=== PATIENT | male | born 1975 | race Caucasian/White ===

== ENCOUNTER → 2025-02-21 | Outpatient (CLI) | payer OTHER, SELFPAY ==
--- OUTSIDE RECORDS SUMMARY | 2025-02-21 07:04 | XMS RPT_ITS | CCD ---
Author Organization [facility] Inform ion [facility] Care Team Providers Care Ems Manager Name Role Phone LENNOX , DR JANA Rushing Primary Care Physician [phone], [address] JANA Rushing Attending Unavailabl e LENNOX DO, DR JANA Rushing Primary Care Unavailabl e LENNOX DO, DR JANA Rushing Attending Unavailabl e LENNOX DO, DR JANA Rushing Primary Care Unavailabl e LENNOX DO, DR JANA Rushing Primary Care Unavailabl e LENNOX DO, DR JANA Rushing Attending Unavailabl e LENNOX DO, DR JANA Rushing Attending Unavailabl e LENNOX DO, DR JANA Rushing Primary Care Unavailabl e SamuelSpencer Referring Unavailable SamuelSpencer Attending Unavailable LennoxJana Primary Care Unavailable Allergies Allergy Classification Reported Allergen(s) Allergy Type Date of Onset Reaction(s) Facility (3 sources) seasonal enviromental Allergy to substance Sneezing (finding), Cough (finding) [facility] Medications Current Medications Medication Drug Class(es) Dates Sig (Normalized) Sig (Original) bisoprolol fumarate 5 mg / hydroCHLOROthiazide 6.25 mg oral tablet (3 sources) Thiazide Diuretic, beta-Adrenergic Melissa Start: 01-24-2023 End: 07-25-2023 take 1 tablet by mouth once daily bisoprolol-hydro chlorothiazide 5 - 6.25 mg oral tablet Dose = 2 tab(s), Oral, Daily, # 180 tab(s), 3 Refill(s), Pharmacy: [facility]/pharmacy #[id number], Hypertension, 172, cm, 01/26/23 15:22:00 EDT, Height, kg, 01/26/23 15:22:00 EDT, Dosing Weight Start Date: 01/26/23 Stop Date: 07/25/23 Status: Ordered Start: 07-15-2022 End: 01-11-2023 take 1 tablet by mouth once daily bisoprolol-hydrochlorothiazide 5 - 6.25 mg oral tablet Dose = 2 tab(s), Oral, Daily, # 60 tab(s), 5 Refill(s), Pharmacy: [facility]/pharmacy #[id number], Hypertension, 172, cm, 07/15/22 15:48:00 EST, Height, kg, 07/15/22 15:48:00 EST, Dosing Weight Start Date: 07/15/22 Stop Date: 01/11/23 Status: Ordered fluticasone propionate 0.05 mg/actuat metered dose nasal spray (3 sources) Corticosteroid Start: 08-31-2021 take 1 dose nasal route twice daily Flonase 50 mcg/inh nasal spray Dose = 1 spray(s), Nostril, each, BID, 0 Refill(s) Start Date: 08/31/21 Status: Ordered lisinopril 10 mg oral tablet (3 sources) Angiotensin Converting Enzyme Inhibitor Start: 01-26-2023 lisinopril 10 mg oral tablet Dose : 10 mg = 1 tab(s), Oral, qDay, # 90 tab(s), 3 Refill(s), [id number], 172, cm, 01/26/23 15:22:00 EDT, Height, kg, 01/26/23 15:22:00 EDT, Dosing Weight Start Date: 01/26/23 Status: Ordered Start: 01-24-2023 lisinopril 10 mg oral tablet Dose : 10 mg = 1 tab(s), Oral, qDay, # 30 tab(s), 5 Refill(s), Pharmacy: [facility]/pharmacy #[id number], 172, cm, 08/03/22 16:43:00 EST, Height, kg, 08/03/22 16:43:00 EST, Dosing Weight Start Date: 01/24/23 Status: Ordered Start: 07-15-2022 lisinopril 10 mg oral tablet Dose : 10 mg = 1 tab(s), Oral, qDay, # 30 tab(s), 5 Refill(s), Pharmacy: [facility]/pharmacy #[id number], 172, cm, 07/15/22 15:48:00 EST, Height Start Date: 07/15/22 Status: Ordered Problems Problem Classification Problem Date Documented Da te Episodic/Chronic Cardiac dysrhythmias (1 source) Paroxysmal atrial fibrillation; Translations: [Paroxysmal atrial fibrillation] Onset: 02-12-2025 Chronic Diabetes mellitus without complication (1 source) Impaired fasting glycemia; Translations: [Impaired fasting glucose] Episodic Essential hypertension (5 sources) Hypertensive disorder; Translations: [Essential (primary) hypertension] Onset: 01-26-2023 06-28-2022 Chronic Results Test Name Value Interpretation Reference Range Facility .Auto Diffon 10-26-2024 Basophil, Absolute 0.0 10 3/mcL Normal 0.0-0.2 [facility] Comment on above: Performed By: #### A DIFF, TSH, CMP, CBC, ANEU, LIPID, GFR #### [address] [address] Basophils/100 WBC (Bld) 0.4 % Normal 0.0-2.5 [facility] Comment on above: Performed By: #### A DIFF, TSH, CMP, CBC, ANEU, LIPID, GFR #### [address] [address] Eosinophil, Absolute 0.2 10 3/mcL Normal 0.0-0.7 [facility] Comment on above: Performed By: #### A DIFF, TSH, CMP, CBC, ANEU, LIPID, GFR #### [address] [address] Eosinophils/100 WBC (Bld) 3.1 % Normal 0.0-7.0 [facility] Comment on above: Performed By: #### A DIFF, TSH, CMP, CBC, ANEU, LIPID, GFR #### [address] [address] Lymphocyte, Absolute 1.9 10 3/mcL Normal 0.9-4.3 [facility] Comment on above: Performed By: #### A DIFF, TSH, CMP, CBC, ANEU, LIPID, GFR #### [address] [address] Lymphocytes/100 WBC (Bld) 29.3 % Normal 20.0-40.0 [facility] Comment on above: Performed By: #### A DIFF, TSH, CMP, CBC, ANEU, LIPID, GFR #### [address] [address] Monocyte, Absolute 0.6 10 3/mcL Normal 0.1-1.4 [facility] Comment on above: Performed By: #### A DIFF, TSH, CMP, CBC, ANEU, LIPID, GFR #### [address] [address] Monocytes/100 WBC (Bld) 8.7 % Normal 2.0-13.0 [facility] Comment on above: Performed By: #### A DIFF, TSH, CMP, CBC, ANEU, LIPID, GFR #### [address] [address] Neutrophils/100 WBC (Bld) 58.5 % Normal 50.0-75.0 [facility] Comment on above: Performed By: #### A DIFF, TSH, CMP, CBC, ANEU, LIPID, GFR #### [address] [address] .GFRon 10-26-2024 Estimated Glomerular Filtration Rate 87 ml/min/1.73sqm Normal [facility] Comment on above: Result Comment: Stages of Chronic Kidney Disease (CKD) Stage Description eGFR(ml/min/1.73 sq.m.) CKD 1 Normal kidney function or >=90 normal kindney function with possible kidney damage (ex. Proteinuria) CKD 2 Kidney damage with mild loss 60-89 of kidney function CKD 3a Mild to moderate loss of kidney 45-59 function CKD 3b Moderate to severe loss of 30-44 of kindey function CKD 4 Severe loss of kidney function 15-29 CKD 5 Kidney failure <15 Note: (go live 2024) the eGFR calculation was updated to the 2020 CKD-EPI creatinine equation without a race factor to calculate the eGFR results. Performed By: #### A DIFF, TSH, CMP, CBC, ANEU, LIPID, GFR #### [id number] [place], [place] [address] .NEUABSon 10-26-2024 Neutrophil, Absolute 3.7 10 3/mcL Normal 2.3-8.1 [facility] Comment on above: Performed By: #### A DIFF, TSH, CMP, CBC, ANEU, LIPID, GFR #### [address] [address] CBCon 10-26-2024 Erythrocyte distribution width (RBC) [Ratio] 13.5 % Normal 11.5-15.5 [facility] Comment on above: Performed By: #### A DIFF, TSH, CMP, CBC, ANEU, LIPID, GFR #### [place] [address] Hematocrit (Bld) [Volume fraction] 41.9 % Normal 40.0-52.0 [facility] Comment on above: Performed By: #### A DIFF, TSH, CMP, CBC, ANEU, LIPID, GFR #### [address] [address] Hgb 14.8 G/dL Normal 13.0-17.5 [facility] Comment on above: Performed By: #### A DIFF, TSH, CMP, CBC, ANEU, LIPID, GFR #### [address] [address] MCH (RBC) [Entitic mass] 30.6 pg Normal 27.0-33.0 [facility] Comment on above: Performed By: #### A DIFF, TSH, CMP, CBC, ANEU, LIPID, GFR #### [place] [address] MCHC 35.2 G/dL Normal 32.0-36.0 [facility] Comment on above: Performed By: #### A DIFF, TSH, CMP, CBC, ANEU, LIPID, GFR #### [address] [address] MCV (RBC) [Entitic vol] 87.0 fL Normal 81.0-100.0 [facility] Comment on above: Performed By: #### A DIFF, TSH, CMP, CBC, ANEU, LIPID, GFR #### [place] [address] Platelet 140 10 3/mcL Low 150-450 [facility] Comment on above: Performed By: #### A DIFF, TSH, CMP, CBC, ANEU, LIPID, GFR #### [address] [address] Platelet mean volume (Bld) [Entitic vol] 11.1 fL High 6.4-10.5 [facility] Comment on above: Performed By: #### A DIFF, TSH, CMP, CBC, ANEU, LIPID, GFR #### [address] [address] RBC 4.82 10 6/mcL Normal 4.50-6.00 [facility] Comment on above: Performed By: #### A DIFF, TSH, CMP, CBC, ANEU, LIPID, GFR #### [address] [address] WBC 6.3 10 3/mcL Normal 4.5-10.8 [facility] Comment on above: Performed By: #### A DIFF, TSH, CMP, CBC, ANEU, LIPID, GFR #### [address] [address] CMPon 10-26-2024 Albumin Level 3.8 G/dL Normal 3.5-5.0 [facility] Comment on above: Performed By: #### A DIFF, TSH, CMP, CBC, ANEU, LIPID, GFR #### [address] [address] Albumin/Globulin [Mass ratio] 1.2 {ratio} Normal 1.1-2.5 [facility] Comment on above: Performed By: #### A DIFF, TSH, CMP, CBC, ANEU, LIPID, GFR #### [address] [address] ALP [Catalytic activity/Vol] 87 U/L Normal 40-135 [facility] Comment on above: Performed By: #### A DIFF, TSH, CMP, CBC, ANEU, LIPID, GFR #### [address] [address] ALT [Catalytic activity/Vol] 31 U/L Normal 16-63 [facility] Comment on above: Performed By: #### A DIFF, TSH, CMP, CBC, ANEU, LIPID, GFR #### [address] [address] AST [Catalytic activity/Vol] 17 U/L Normal 10-40 [facility] Comment on above: Performed By: #### A DIFF, TSH, CMP, CBC, ANEU, LIPID, GFR #### [address] [address] Bili Total 0.7 mg/dL Normal 0.2-1.0 [facility] Comment on above: Result Comment: Use of this assay is not recommended for patients undergoing treatment with eltrombopag due to the potential for falsely elevated results. Performed By: #### A DIFF, TSH, CMP, CBC, ANEU, LIPID, GFR #### [address] [address] BUN/Creatinine Ratio 29 ratio High 7-27 [facility] Comment on above: Performed By: #### A DIFF, TSH, CMP, CBC, ANEU, LIPID, GFR #### [address] [address] Calcium [Mass/Vol] 8.8 mg/dL Normal 8.4-10.2 [facility] Comment on above: Performed By: #### A DIFF, TSH, CMP, CBC, ANEU, LIPID, GFR #### [address] [address] Chloride [Moles/Vol] 104 mmol/L Normal 98-107 [facility] Comment on above: Performed By: #### A DIFF, TSH, CMP, CBC, ANEU, LIPID, GFR #### [address] [address] CO2 [Moles/Vol] 29 mmol/L Normal 22-29 [facility] Comment on above: Performed By: #### A DIFF, TSH, CMP, CBC, ANEU, LIPID, GFR #### [address] [address] Creatinine [Mass/Vol] 1.05 mg/dL Normal 0.70-1.30 [facility] Comment on above: Result Comment: Test ing performed on Siemens Dimension EXL analyzer using a modified kinetic Sharda technique. Performed By: #### A DIFF, TSH, CMP, CBC, ANEU, LIPID, GFR #### [address] [address] Electrolyte Balance 8.0 mEq/L Normal 4.0-15.0 [facility] Comment on above: Performed By: #### A DIFF, TSH, CMP, CBC, ANEU, LIPID, GFR #### [address] [address] Globulin 3.2 G/dL Normal 1.5-3.8 [facility] Comment on above: Performed By: #### A DIFF, TSH, CMP, CBC, ANEU, LIPID, GFR #### [address] [address] Glucose [Mass/Vol] 116 mg/dL High 70-105 [facility] Comment on above: Performed By: #### A DIFF, TSH, CMP, CBC, ANEU, LIPID, GFR #### [address] [address] Potassium [Moles/Vol] 3.5 mmol/L Normal 3.5-5.1 [facility] Comment on above: Performed By: #### A DIFF, TSH, CMP, CBC, ANEU, LIPID, GFR #### [address] [address] Sodium [Moles/Vol] 141 mmol/L Normal 136-145 [facility] Comment on above: Performed By: #### A DIFF, TSH, CMP, CBC, ANEU, LIPID, GFR #### [address] [address] Total Protein 7.0 G/dL Normal 6.4-8.2 [facility] Comment on above: Performed By: #### A DIFF, TSH, CMP, CBC, ANEU, LIPID, GFR #### [address] [address] Urea nitrogen [Mass/Vol] 30 mg/dL High 7-18 [facility] Comment on above: Performed By: #### A DIFF, TSH, CMP, CBC, ANEU, LIPID, GFR #### [address] [address] LIPIDon 10-26-2024 Cholesterol [Mass/Vol] 196 mg/dL Normal 0-200 [facility] Comment on above: Result Comment: Chol esterol Reference Interval: Less than 200 Desirable 200-239 Borderline high risk 240 and above High risk Performed By: #### A DIFF, TSH, CMP, CBC, ANEU, LIPID, GFR #### [address] [address] Cholesterol in HDL [Mass/Vol] 52 mg/dL Normal 40-60 [facility] Comment on above: Performed By: #### A DIFF, TSH, CMP, CBC, ANEU, LIPID, GFR #### [address] [address] Cholesterol in LDL [Mass/Vol] 118 mg/dL Normal 0-130 [facility] Comment on above: Performed By: #### A DIFF, TSH, CMP, CBC, ANEU, LIPID, GFR #### [address] [address] Triglyceride [Mass/Vol] 130 mg/dL Normal 0-150 [facility] Comment on above: Result Comment: Trig lyceride Reference Interval: Less than 150 Normal 150-199 Borderline high risk 200-499 High risk 500 or higher Very high risk Performed By: #### A DIFF, TSH, CMP, CBC, ANEU, LIPID, GFR #### [address] [address] TSHon 10-26-2024 TSH Qn 3.18 m[IU]/L Normal 0.36-3.74 [facility] Comment on above: Performed By: #### A DIFF, TSH, CMP, CBC, ANEU, LIPID, GFR #### [address] [address] LABORATORYOrdered By: Bree Shah on 01-26-2023 Albumin DL <= 20 mg/L (U) [Mass/Vol] 1335 mcg/dL Invalid Interpretation Code AO ADM SS Albumin/Creatinine DL <= 20 mg/L (U) [Mass ratio] 7 mcg/mg Invalid Interpretation Code 0 - 30 mcg/mg AO ADM SS Creatinine (U) [Mass/Vol] 182.6 mg/dL Invalid Interpretation Code 39.0 - 259.0 mg/dL AO ADM SS MALBRon 01-26-2023 U Creatinine 182.6 mg/dL Normal 39.0-259.0 [facility] ([place]) Comment on above: Performed By: #### M ALBR #### [address] [address] U Microalb 1335 mcg/dL Normal [facility] ([place]) Comment on above: Performed By: #### M ALBR #### [address] [address] U Ratio Alb/Cre 7 mcg/mg Normal 0-30 [facility] ([place]) Comment on above: Performed By: #### M ALBR #### [address] [address] .GFRon 01-24-2023 GFR 96 ml/min/1.73sqm Normal [facility] ([place]) Comment on above: Result Comment: GFR Population mean for , Non- Americans Ages 20-29 = 116 mL/min/1.73 sq.m. Ages 30-39 = 107 mL/min/1.73 sq.m. Ages 40-49 = 99 mL/min/1.73 sq.m. Ages 50-59 = 93 mL/min/1.73 sq.m. Ages 60-69 = 85 mL/min/1.73 sq.m. Ages 70+ = 75 mL/min/1.73 sq.m. Chronic Kidney Disease: Less than 60 mL/min/1.73 square meters End Stage Renal Disease: Less than 15 mL/min/1.73 square meters Performed By: #### C MP, LIPID, A1C, GFR #### [address] [address] GFR Non- 79 ml/min/1.73sqm Normal [facility] ([place]) Comment on above: Result Comment: GFR Population mean for , Non- Americans Ages 20-29 = 116 mL/min/1.73 sq.m. Ages 30-39 = 107 mL/min/1.73 sq.m. Ages 40-49 = 99 mL/min/1.73 sq.m. Ages 50-59 = 93 mL/min/1.73 sq.m. Ages 60-69 = 85 mL/min/1.73 sq.m. Ages 70+ = 75 mL/min/1.73 sq.m. Chronic Kidney Disease: Less than 60 mL/min/1.73 square meters End Stage Renal Disease: Less than 15 mL/min/1.73 square meters Performed By: #### C MP, LIPID, A1C, GFR #### [address] [address] A1Con 01-24-2023 HbA1c (Bld) [Mass fraction] 5.9 % Normal 4.3-6.4 [facility] ([place]) Comment on above: Performed By: #### C MP, LIPID, A1C, GFR #### [address] [address] CMPon 01-24-2023 Albumin Level 4.0 G/dL Normal 3.5-5.0 [facility] ([place]) Comment on above: Performed By: #### C MP, LIPID, A1C, GFR #### [address] [address] Albumin/Globulin [Mass ratio] 1.3 {ratio} Normal 1.1-2.5 [facility] ([place]) Comment on above: Performed By: #### C MP, LIPID, A1C, GFR #### [address] [address] ALP [Catalytic activity/Vol] 82 U/L Normal 40-135 [facility] ([place]) Comment on above: Performed By: #### C MP, LIPID, A1C, GFR #### [address] [address] ALT [Catalytic activity/Vol] 37 U/L Normal 16-63 [facility] ([place]) Comment on above: Performed By: #### C MP, LIPID, A1C, GFR #### [address] [address] AST [Catalytic activity/Vol] 14 U/L Normal 10-40 [facility] ([place]) Comment on above: Performed By: #### C MP, LIPID, A1C, GFR #### [address] [address] Bili Total 0.6 mg/dL Normal 0.2-1.0 [facility] ([place]) Comment on above: Result Comment: Use of this assay is not recommended for patients undergoing treatment with eltrombopag due to the potential for falsely elevated results. Performed By: #### C MP, LIPID, A1C, GFR #### [address] [address] BUN/Creatinine Ratio 26 ratio Normal 7-27 [facility] ([place]) Comment on above: Performed By: #### C MP, LIPID, A1C, GFR #### [address] [address] Calcium [Mass/Vol] 9.7 mg/dL Normal 8.4-10.2 [facility] ([place]) Comment on above: Performed By: #### C MP, LIPID, A1C, GFR #### [address] [address] Chloride [Moles/Vol] 102 mmol/L Normal 98-107 [facility] ([place]) Comment on above: Performed By: #### C MP, LIPID, A1C, GFR #### [address] [address] CO2 [Moles/Vol] 28 mmol/L Normal 22-29 [facility] ([place]) Comment on above: Performed By: #### C MP, LIPID, A1C, GFR #### [address] [address] Creatinine [Mass/Vol] 1.01 mg/dL Normal 0.70-1.30 [facility] ([place]) Comment on above: Performed By: #### C MP, LIPID, A1C, GFR #### [address] [address] Electrolyte Balance 9.0 mEq/L Normal 4.0-15.0 [facility] ([place]) Comment on above: Performed By: #### C MP, LIPID, A1C, GFR #### [address] [address] Globulin 3.0 G/dL Normal [facility] ([place]) Comment on above: Performed By: #### C MP, LIPID, A1C, GFR #### [address] [address] Glucose [Mass/Vol] 82 mg/dL Normal 70-105 [facility] ([place]) Comment on above: Performed By: #### C MP, LIPID, A1C, GFR #### [address] [address] Potassium [Moles/Vol] 4.2 mmol/L Normal 3.5-5.1 [facility] ([place]) Comment on above: Performed By: #### C MP, LIPID, A1C, GFR #### [address] [address] Sodium [Moles/Vol] 139 mmol/L Normal 136-145 [facility] ([place]) Comment on above: Performed By: #### C MP, LIPID, A1C, GFR #### [address] [address] Total Protein 7.0 G/dL Normal 6.4-8.2 [facility] ([place]) Comment on above: Performed By: #### C MP, LIPID, A1C, GFR #### [address] [address] Urea nitrogen [Mass/Vol] 26 mg/dL High 7-18 [facility] ([place]) Comment on above: Performed By: #### C MP, LIPID, A1C, GFR #### [address] [address] LABORATORYOrdered By: SYSTEM SYSTEM on 01-24-2023 Albumin BCP dye [Mass/Vol] 4.0 G/dL Invalid Interpretation Code 3.5 - 5.0 G/dL AO ADM SS Albumin/Globulin [Mass ratio] 1.3 {ratio} Invalid Interpretation Code 1.1 - 2.5 ratio AO ADM SS ALP [Catalytic activity/Vol] 82 U/L Invalid Interpretation Code 40 - 135 U/L AO ADM SS ALT With P-5'-P [Catalytic activity/Vol] 37 U/L Invalid Interpretation Code 16 - 63 U/L AO ADM SS AST With P-5'-P [Catalytic activity/Vol] 14 U/L Invalid Interpretation Code 10 - 40 U/L AO ADM SS Bilirubin [Mass/Vol] 0.6 mg/dL Invalid Interpretation Code 0.2 - 1.0 mg/dL AO ADM SS Calcium [Mass/Vol] 9.7 mg/dL Invalid Interpretation Code 8.4 - 10.2 mg/dL AO ADM SS Chloride [Moles/Vol] 102 mmol/L Invalid Interpretation Code 98 - 107 mmol/L AO ADM SS CO2 [Moles/Vol] 28 mmol/L Invalid Interpretation Code 22 - 29 mmol/L AO ADM SS Creatinine [Mass/Vol] 1.01 mg/dL Invalid Interpretation Code 0.70 - 1.30 mg/dL AO ADM SS Electrolyte Balance 9.0 mEq/L Invalid Interpretation Code 4.0 - 15.0 mEq/L AO ADM SS GFR/1.73 sq M.predicted among blacks MDRD (S/P/Bld) [Vol rate/Area] 96 ml/min/1.73sqm Invalid Interpretation Code AO Chemistry S GFR/1.73 sq M.predicted among non-blacks MDRD (S/P/Bld) [Vol rate/Area] 79 ml/min/1.73sqm Invalid Interpretation Code AO Chemistry S Globulin 3.0 G/dL Invalid Interpretation Code AO ADM SS Glucose [Mass/Vol] 82 mg/dL Invalid Interpretation Code 70 - 105 mg/dL AO ADM SS HbA1c (Bld) [Mass fraction] 5.9 % Invalid Interpretation Code 4.3 - 6.4 % AO ADM SS Potassium [Moles/Vol] 4.2 mmol/L Invalid Interpretation Code 3.5 - 5.1 mmol/L AO ADM SS Protein [Mass/Vol] 7.0 G/dL Invalid Interpretation Code 6.4 - 8.2 G/dL AO ADM SS Sodium [Moles/Vol] 139 mmol/L Invalid Interpretation Code 136 - 145 mmol/L AO ADM SS Urea nitrogen [Mass/Vol] 26 mg/dL Invalid Interpretation Code 7 - 18 mg/dL AO ADM SS Urea nitrogen/Creatinine [Mass ratio] 26 ratio Invalid Interpretation Code 7 - 27 ratio AO ADM SS LABORATORYOrdered By: Todd Albarado on 01-24-2023 Cholesterol [Mass/Vol] 218 mg/dL Invalid Interpretation Code 0 - 200 mg/dL AO ADM SS Cholesterol in HDL [Mass/Vol] 50 mg/dL Invalid Interpretation Code 40 - 60 mg/dL AO ADM SS Cholesterol in LDL [Mass/Vol] 121 mg/dL Invalid Interpretation Code 0 - 130 mg/dL AO ADM SS Triglyceride [Mass/Vol] 236 mg/dL Invalid Interpretation Code 0 - 150 mg/dL AO ADM SS LIPIDon 01-24-2023 Cholesterol [Mass/Vol] 218 mg/dL High 0-200 [facility] ([place]) Comment on above: Result Comment: Chol esterol Reference Interval: Less than 200 Desirable 200-239 Borderline high risk 240 and above High risk Performed By: #### C MP, TSH, GFR #### [address] [address] Cholesterol in HDL [Mass/Vol] 50 mg/dL Normal 40-60 [facility] ([place]) Comment on above: Performed By: #### C MP, TSH, GFR #### [address] [address] Cholesterol in LDL [Mass/Vol] 121 mg/dL Normal 0-130 [facility] ([place]) Comment on above: Performed By: #### C MP, TSH, GFR #### [address] [address] Triglyceride [Mass/Vol] 236 mg/dL High 0-150 [facility] ([place]) Comment on above: Result Comment: Trig lyceride Reference Interval: Less than 150 Normal 150-199 Borderline high risk 200-499 High risk 500 or higher Very high risk Performed By: #### C MP, TSH, GFR #### [address] [address] .Auto Diffon 07-16-2022 Basophil, Absolute 0.0 10 3/mcL Normal 0.0-0.2 [facility] ([place]) Comment on above: Performed By: #### C MP, TSH, GFR #### [address] [address] Basophils/100 WBC (Bld) 0.3 % Normal 0.0-2.5 [facility] ([place]) Comment on above: Performed By: #### C MP, TSH, GFR #### [address] [address] Eosinophil, Absolute 0.2 10 3/mcL Normal 0.0-0.4 [facility] ([place]) Comment on above: Performed By: #### C MP, TSH, GFR #### [address] [address] Eosinophils/100 WBC (Bld) 2.8 % Normal 0.0-7.0 [facility] ([place]) Comment on above: Performed By: #### C MP, TSH, GFR #### [address] [address] Lymphocyte, Absolute 1.6 10 3/mcL Normal 0.8-3.9 [facility] ([place]) Comment on above: Performed By: #### C MP, TSH, GFR #### [address] [address] Lymphocytes/100 WBC (Bld) 26.3 % Normal 10.0-50.0 [facility] ([place]) Comment on above: Performed By: #### C MP, TSH, GFR #### [address] [address] Monocyte, Absolute 0.8 10 3/mcL Normal 0.2-1.0 [facility] ([place]) Comment on above: Performed By: #### C MP, TSH, GFR #### [address] [address] Monocytes/100 WBC (Bld) 13.9 % High 1.7-13.0 [facility] ([place]) Comment on above: Performed By: #### C MP, TSH, GFR #### [address] [address] Neutrophils/100 WBC (Bld) 56.7 % Normal 37.0-80.0 [facility] ([place]) Comment on above: Performed By: #### C MP, TSH, GFR #### [place] [address] [address] .GFRon 07-16-2022 GFR 95 ml/min/1.73sqm Normal [facility] ([place]) Comment on above: Result Comment: GFR Population mean for , Non- Americans Ages 20-29 = 116 mL/min/1.73 sq.m. Ages 30-39 = 107 mL/min/1.73 sq.m. Ages 40-49 = 99 mL/min/1.73 sq.m. Ages 50-59 = 93 mL/min/1.73 sq.m. Ages 60-69 = 85 mL/min/1.73 sq.m. Ages 70+ = 75 mL/min/1.73 sq.m. Chronic Kidney Disease: Less than 60 mL/min/1.73 square meters End Stage Renal Disease: Less than 15 mL/min/1.73 square meters Performed By: #### C MP, TSH, GFR #### [address] [address] GFR Non- 78 ml/min/1.73sqm Normal [facility] ([place]) Comment on above: Result Comment: GFR Population mean for , Non- Americans Ages 20-29 = 116 mL/min/1.73 sq.m. Ages 30-39 = 107 mL/min/1.73 sq.m. Ages 40-49 = 99 mL/min/1.73 sq.m. Ages 50-59 = 93 mL/min/1.73 sq.m. Ages 60-69 = 85 mL/min/1.73 sq.m. Ages 70+ = 75 mL/min/1.73 sq.m. Chronic Kidney Disease: Less than 60 mL/min/1.73 square meters End Stage Renal Disease: Less than 15 mL/min/1.73 square meters Performed By: #### C MP, TSH, GFR #### [address] [address] .NEUABSon 07-16-2022 Neutrophil, Absolute 3.4 10 3/mcL Normal 2.9-6.2 [facility] ([place]) Comment on above: Performed By: #### C MP, TSH, GFR #### [address] [address] CBCon 07-16-2022 Erythrocyte distribution width (RBC) [Ratio] 13.4 % Normal 11.5-14.5 [facility] ([place]) Comment on above: Performed By: #### C MP, TSH, GFR #### [address] [address] Hematocrit (Bld) [Volume fraction] 41.4 % Low 42.0-52.0 [facility] ([place]) Comment on above: Performed By: #### C MP, TSH, GFR #### [address] [address] Hgb 14.8 G/dL Normal 14.0-18.0 [facility] ([place]) Comment on above: Performed By: #### C MP, TSH, GFR #### [address] [address] MCH (RBC) [Entitic mass] 30.5 pg Normal 27.0-31.2 [facility] ([place]) Comment on above: Performed By: #### C MP, TSH, GFR #### [address] [address] MCHC 35.7 G/dL High 31.8-35.4 [facility] ([place]) Comment on above: Performed By: #### C MP, TSH, GFR #### [address] [address] MCV (RBC) [Entitic vol] 85.4 fL Normal 80.0-94.0 [facility] ([place]) Comment on above: Performed By: #### C MP, TSH, GFR #### [address] [address] Platelet 158 10 3/mcL Normal 130-400 [facility] ([place]) Comment on above: Performed By: #### C MP, TSH, GFR #### [address] [address] Platelet mean volume (Bld) [Entitic vol] 10.6 fL High 7.4-10.4 [facility] ([place]) Comment on above: Performed By: #### C MP, TSH, GFR #### [address] [address] RBC 4.85 10 6/mcL Normal 4.04-6.13 [facility] ([place]) Comment on above: Performed By: #### C MP, TSH, GFR #### [address] [address] WBC 6.0 10 3/mcL Normal 4.6-10.8 [facility] ([place]) Comment on above: Performed By: #### C MP, TSH, GFR #### [address] [address] CMPon 07-16-2022 Albumin Level 3.9 G/dL Normal 3.5-5.0 [facility] ([place]) Comment on above: Performed By: #### C MP, TSH, GFR #### [address] [address] Albumin/Globulin [Mass ratio] 1.3 {ratio} Normal 1.1-2.5 [facility] ([place]) Comment on above: Performed By: #### C MP, TSH, GFR #### [address] [address] ALP [Catalytic activity/Vol] 108 U/L Normal 40-135 [facility] ([place]) Comment on above: Performed By: #### C MP, TSH, GFR #### [address] [address] ALT [Catalytic activity/Vol] 30 U/L Normal 16-63 [facility] ([place]) Comment on above: Performed By: #### C MP, TSH, GFR #### [address] [address] AST [Catalytic activity/Vol] 16 U/L Normal 10-40 [facility] ([place]) Comment on above: Performed By: #### C MP, TSH, GFR #### [address] [address] Bili Total 0.7 mg/dL Normal 0.2-1.0 [facility] ([place]) Comment on above: Result Comment: Use of this assay is not recommended for patients undergoing treatment with eltrombopag due to the potential for falsely elevated results. Performed By: #### C MP, TSH, GFR #### [address] [address] BUN/Creatinine Ratio 26 ratio Normal 7-27 [facility] ([place]) Comment on above: Performed By: #### C MP, TSH, GFR #### [address] [address] Calcium [Mass/Vol] 9.2 mg/dL Normal 8.4-10.2 [facility] ([place]) Comment on above: Performed By: #### C MP, TSH, GFR #### [address] [address] Chloride [Moles/Vol] 105 mmol/L Normal 98-107 [facility] ([place]) Comment on above: Performed By: #### C MP, TSH, GFR #### [address] [address] CO2 [Moles/Vol] 29 mmol/L Normal 22-29 [facility] ([place]) Comment on above: Performed By: #### C MP, TSH, GFR #### [address] [address] Creatinine [Mass/Vol] 1.02 mg/dL Normal 0.70-1.30 [facility] ([place]) Comment on above: Performed By: #### C MP, TSH, GFR #### [address] [address] Electrolyte Balance 8.0 mEq/L Normal 4.0-15.0 [facility] ([place]) Comment on above: Performed By: #### C MP, TSH, GFR #### [address] [address] Globulin 3.0 G/dL Normal [facility] ([place]) Comment on above: Performed By: #### C MP, TSH, GFR #### [address] [address] Glucose [Mass/Vol] 120 mg/dL High 70-105 [facility] ([place]) Comment on above: Performed By: #### C MP, TSH, GFR #### [address] [address] Potassium [Moles/Vol] 4.2 mmol/L Normal 3.5-5.1 [facility] ([place]) Comment on above: Performed By: #### C MP, TSH, GFR #### [address] [address] Sodium [Moles/Vol] 142 mmol/L Normal 136-145 [facility] ([place]) Comment on above: Performed By: #### C MP, TSH, GFR #### [address] [address] Total Protein 6.9 G/dL Normal 6.4-8.2 [facility] ([place]) Comment on above: Performed By: #### C MP, TSH, GFR #### [address] [address] Urea nitrogen [Mass/Vol] 27 mg/dL High 7-18 [facility] ([place]) Comment on above: Performed By: #### C MP, TSH, GFR #### [address] [address] LABORATORYOrdered By: SYSTEM SYSTEM on 07-16-2022 Albumin BCP dye [Mass/Vol] 3.9 G/dL Invalid Interpretation Code 3.5 - 5.0 G/dL AO ADM SS Albumin/Globulin [Mass ratio] 1.3 {ratio} Invalid Interpretation Code 1.1 - 2.5 ratio AO ADM SS ALP [Catalytic activity/Vol] 108 U/L Invalid Interpretation Code 40 - 135 U/L AO ADM SS ALT With P-5'-P [Catalytic activity/Vol] 30 U/L Invalid Interpretation Code 16 - 63 U/L AO ADM SS AST With P-5'-P [Catalytic activity/Vol] 16 U/L Invalid Interpretation Code 10 - 40 U/L AO ADM SS Bilirubin [Mass/Vol] 0.7 mg/dL Invalid Interpretation Code 0.2 - 1.0 mg/dL AO ADM SS Calcium [Mass/Vol] 9.2 mg/dL Invalid Interpretation Code 8.4 - 10.2 mg/dL AO ADM SS Chloride [Moles/Vol] 105 mmol/L Invalid Interpretation Code 98 - 107 mmol/L AO ADM SS CO2 [Moles/Vol] 29 mmol/L Invalid Interpretation Code 22 - 29 mmol/L AO ADM SS Creatinine [Mass/Vol] 1.02 mg/dL Invalid Interpretation Code 0.70 - 1.30 mg/dL AO ADM SS Electrolyte Balance 8.0 mEq/L Invalid Interpretation Code 4.0 - 15.0 mEq/L AO ADM SS GFR 95 ml/min/1.73sqm Invalid Interpretation Code AO Chemistry S GFR Non- 78 ml/min/1.73sqm Invalid Interpretation Code AO Chemistry S Globulin 3.0 G/dL Invalid Interpretation Code AO ADM SS Glucose [Mass/Vol] 120 mg/dL Invalid Interpretation Code 70 - 105 mg/dL AO ADM SS Potassium [Moles/Vol] 4.2 mmol/L Invalid Interpretation Code 3.5 - 5.1 mmol/L AO ADM SS Protein [Mass/Vol] 6.9 G/dL Invalid Interpretation Code 6.4 - 8.2 G/dL AO ADM SS Sodium [Moles/Vol] 142 mmol/L Invalid Interpretation Code 136 - 145 mmol/L AO ADM SS TSH Qn 2.10 m[IU]/L Invalid Interpretation Code 0.36 - 3.74 mcIU/mL AO ADM SS Urea nitrogen [Mass/Vol] 27 mg/dL Invalid Interpretation Code 7 - 18 mg/dL AO ADM SS Urea nitrogen/Creatinine [Mass ratio] 26 ratio Invalid Interpretation Code 7 - 27 ratio AO ADM SS LABORATORYOrdered By: Sammi Conrad on 07-16-2022 Basophil, Absolute 0.0 103/mcL Invalid Interpretation Code 0.0 - 0.2 10^3/mcL AO Workflow SS Basophils/100 WBC (Bld) 0.3 % Invalid Interpretation Code 0.0 - 2.5 % AO Workflow SS Eosinophil, Absolute 0.2 103/mcL Invalid Interpretation Code 0.0 - 0.4 10^3/mcL AO Workflow SS Eosinophils/100 WBC (Bld) 2.8 % Invalid Interpretation Code 0.0 - 7.0 % AO Workflow SS Erythrocyte distribution width (RBC) [Ratio] 13.4 % Invalid Interpretation Code 11.5 - 14.5 % AO Workflow SS Hematocrit (Bld) [Volume fraction] 41.4 % Invalid Interpretation Code 42.0 - 52.0 % AO Workflow SS Hemoglobin (Bld) [Mass/Vol] 14.8 G/dL Invalid Interpretation Code 14.0 - 18.0 G/dL AO Workflow SS Lymphocyte, Absolute 1.6 103/mcL Invalid Interpretation Code 0.8 - 3.9 10^3/mcL AO Workflow SS Lymphocytes/100 WBC (Bld) 26.3 % Invalid Interpretation Code 10.0 - 50.0 % AO Workflow SS MCH (RBC) [Entitic mass] 30.5 pg Invalid Interpretation Code 27.0 - 31.2 pg AO Workflow SS MCHC 35.7 G/dL Invalid Interpretation Code 31.8 - 35.4 G/dL AO Workflow SS MCV (RBC) [Entitic vol] 85.4 fL Invalid Interpretation Code 80.0 - 94.0 fL AO Workflow SS Monocyte, Absolute 0.8 103/mcL Invalid Interpretation Code 0.2 - 1.0 10^3/mcL AO Workflow SS Monocytes/100 WBC (Bld) 13.9 % Invalid Interpretation Code 1.7 - 13.0 % AO Workflow SS Neutrophil, Absolute 3.4 103/mcL Invalid Interpretation Code 2.9 - 6.2 10^3/mcL AO Workflow SS Neutrophils/100 WBC (Bld) 56.7 % Invalid Interpretation Code 37.0 - 80.0 % AO Workflow SS Platelet mean volume (Bld) [Entitic vol] 10.6 fL Invalid Interpretation Code 7.4 - 10.4 fL AO Workflow SS Platelets (Bld) [#/Vol] 158 103/mcL Invalid Interpretation Code 130 - 400 10^3/mcL AO Workflow SS RBC (Bld) [#/Vol] 4.85 106/mcL Invalid Interpretation Code 4.04 - 6.13 10^6/mcL AO Workflow SS WBC (Bld) [#/Vol] 6.0 103/mcL Invalid Interpretation Code 4.6 - 10.8 10^3/mcL AO Workflow SS TSHon 12-17-2022 TSH Qn 2.10 m[IU]/L Normal 0.36-3.74 [facility] ([place]) Comment on above: Performed By: #### C MP, TSH, GFR #### [facility] [address] [place], [place] [address] Encounters Encounter Date Encounter Type Care Provider Facility Start: 02-21-2025 ambulatory [facility] Facility:[facility] Start: 10-26-2024 End: 10-26-[address] JANA CABALLERO DO Facility:[facility] Start: 01-26-2023 End: 01-31-[address] JANA CABALLERO DO Facility:[facility] Start: 01-26-2023 End: 01-30-[address] JANA CABALLERO DO [facility] Start: 01-24-2023 End: 01-25-[address] JANA CABALLERO DO Facility:[facility] Start: 01-24-2023 End: 01-24-[address] JANA CABALLERO DO [facility] Start: 01-24-2023 End: 01-24-2023 Well adult monitoring check done DR JANA CABALLERO DO [facility] Start: 07-16-2022 End: 07-17-[address] JANA CABALLERO DO Facility:[facility] Start: 07-16-2022 End: 07-16-[address] JANA CABALLERO DO [facility] Immunizations Immunization Date Immunization Notes Care Provider Brandi thomas 09-17-2021 SARS-CoV-2 (COVID-19 ) mRNA-[address] JANA CABALLERO DO [facility] 08-15-2021 SARS-CoV-2 (COVID-19 ) mRNA-[address] JANA CABALLERO DO [facility] 08-28-2015 tetanus toxoid, redu ar diphtheria toxoid, and acellular pertussis vaccine, adsorbed DR JANA CABALLERO DO [facility] Payers Date Payer Category Payer Self-pay 2024 Unknown [id number] 2024 Unknown [id number] 2023 Unknown [id number] 2022 Unknown [id number] 1975 Unknown [id number] 2.16.8 [id number] 1975 Unknown [id number] 2.16.8 [id number] 1975 Unknown [id number] 2.16.8 [id number] 1975 Unknown [id number] 2.16.8 [id number] Unknown [id number] 2.16.8 [id number] Social History Date Type Detail Facility Start: 08-31-2021 Tobacco smoking status Never s moked tobacco (finding) [facility] Sex Assigned At Sex [facility] Evaluation + Plan note Note Date & Type Note Facility Evaluation + Plan note Future Appointments Appointment Date:07/29/2022 04:35:00 PM Scheduled Provider:JANA CABALLERO DO Location:[facility] Appointment Type:[facility] Evaluation + Plan note Note Date & Type Note Facility Evaluation + Plan note Future Appointments Appointment Date:01/26/2023 03:15:00 PM Scheduled Provider:JANA CABALLERO DO Location:[facility] Appointment Type:[facility] Hospital course Narrative Note Date & Type Note Facility Hospital course Narrative No data available for this section [facility] Hospital Discharge instructions Note Date & Type Note Facility Hospital Discharge instructions No data available for this section [facility] Progress note Note Date & Type Note Facility Progress note No data available for this section [facility] Summary Purpose Family History No Family History Records FoundNo Family History Records FoundNo Family History Records Found Advance Directives No Advanced Directives Records FoundNo Advanced Directives Records FoundNo Advanced Directives Records Found Additional Source Comments Care Team (unrecognized sect ion and content) Care Team Personnel Name: JANA CABALLERO DO Position: P4 Physician - Primary Care Member Role: Primary Care Physician Address: Address: [address] [place] [address] Care Team Related Persons Name: HEIKE DONALDSON Patient Care team informatio n (unrecognized section and content) Care Team Personnel Name: JANA CABALLERO DO Position: P4 Physician - Primary Care Member Role: Primary Care Physician Address: Address: [address] [place] [address] Care Team Related Persons Name: HEIKE DONALDSON Care Team Personnel Name: JANA CABALLERO DO Position: P4 Physician - Primary Care Member Role: Primary Care Physician Address: Address: [address] [place] [address] Care Team Related Persons Name: HEIKE DONALDSON (unrecognized sect ion and content) No Status Records FoundNo Status Records FoundNo Status Records Found INFORMATION SOURCE (unrecogn ized section and content) DATE CREATED AUTHOR 01/31/2023 [facility] ([place]) DATE CREATED AUTHOR AUTHOR'S ORGANIZ ATION 10/27/2024 [facility] DATE CREATED AUTHOR AUTHOR'S ORGANIZ ATION 02/16/2025 [facility] FOR RECORDS PERTAINING TO PATIENTS WHO ARE OR HAVE BEEN ENROLLED IN A CHEMICAL DEPENDENCY/SUBSTANCEABUSE PROGRAM, SOME INFORMATION MAY BE OMITTED. This clinical summary was aggregated from multiple sources. Caution should be exercised in using it in the provision of clinical care. This summary normalizes information from multiple sources, and as a consequence, information in this document may materially change the coding, format and clinical context of patient data. In addition, data may be omitted in some cases. CLINICAL DECISIONS SHOULD BE BASED ON THE PRIMARY CLINICAL RECORDS. [employer] [facility]. provides no warranty or guarantee of the accuracy or completeness of information in this document.
--- NOTE | 2025-02-21 07:10 | ECHOD_ITS ---
Reason For Study : A. fib Procedure This was a 2D Doppler, Color Flow transthoracic echocardiogram. Exam performed in department. Left Ventricle Normal LV size. Mild concentric left ventricular hypertrophy. Left ventricular systolic function is normal. The left ventricular ejection fraction is 55 %. Right Ventricle Normal RV size. Normal systolic function. Atria Normal left atrium. Normal right atrium. Mitral Valve Normal mitral valve. Tricuspid Valve Normal tricuspid valve. Mild (1+) tricuspid valve insufficiency. Pulmonary artery systolic pressure is 24 mmHg. Aortic Valve Trisinus/trileaflet aortic valve. Pulmonic Valve Normal pulmonic valve. Great Vessels Moderately dilated aortic root. The pulmonary artery is normal size. Inferior vena cava collapse with respiration. Pericardium/Pleural No pericardial effusion. MMode/2D Measurements & Calculations LVIDd: 3.8 cm IVSd: 1.3 cm Ao root diam: 4.0 cm LVIDs: 2.5 cm LVPWd: 1.2 cm RVDd: 3.7 cm FS: 35.1 % LAV(MOD-bp): 34.8 ml LVAd ap4: 26.1 cm2 LVAd ap2: 20.1 cm2 LAV(MOD-bp) Indexed: 17.0 ml/m2 LVLd ap4: 8.9 cm LVLd ap2: 8.0 cm LAV(MOD-sp2): 37.1 ml EDV(MOD-sp4): 63.4 ml EDV(MOD-sp2): 40.7 ml LAV(MOD-sp4): 28.7 ml EDV(sp4-el): 65.1 ml EDV(sp2-el): 42.9 ml LVAs ap4: 16.5 cm2 LVAs ap2: 13.9 cm2 LVLs ap4: 8.0 cm LVLs ap2: 7.7 cm ESV(MOD-sp4): 29.0 ml ESV(MOD-sp2): 22.2 ml ESV(sp4-el): 28.7 ml ESV(sp2-el): 21.4 ml EF(MOD-sp4): 54.3 % EF(MOD-sp2): 45.4 % EF(sp4-el): 55.9 % SV(MOD-sp4): 34.4 ml SV(MOD-sp2): 18.5 ml SV(sp4-el): 36.4 ml SI(MOD-sp4): 16.8 ml/m2 SI(MOD-sp2): 9.1 ml/m2 LA A4 area: 12.9 cm2 LA dimension(2D): 3.9 cm RA A4 area: 11.0 cm2 Doppler Measurements & Calculations MV E max sonja: 88.6 cm/sec Ao V2 max: 125.7 cm/sec LV V1 max: 86.2 cm/sec Ao max P.3 mmHg LV V1 max P.0 mmHg PA V2 max: 90.6 cm/sec TR max sonja: 227.8 cm/sec TR max P.8 mmHg ECHO/Echo Complete Interpretation Summary Normal LV size. The left ventricular ejection fraction is 55 %. Moderately dilated aortic root. Mild concentric left ventricular hypertrophy. Pulmonary artery systolic pressure is 24 mmHg. Ordering Physician: Spencer Baker Referring Physician: Spencer Baker Performed By: Cassia Enriquez RDCS
--- NOTE | 2025-02-22 11:16 | STRESSREP ---
Stress Test Report Pharmacologic myocardial perfusion stress test. 50-year-old male with a history of atrial fibrillation Resting EKG demonstrates atrial fibrillation with a rate of 98 bpm. Resting blood pressure is 128/80 mmHg. 0.4 mg of regadenoson was infused per usual protocol followed by rapid intravenous saline flush injection. Continuous EKG monitoring was performed. The maximum heart rate was 134 bpm which was 78 beats of max impacted heart rate the maximum workload was 1 metabolic equivalent. At rest there were no ST or T wave changes noted to suggest ischemia and at peak infusion nonspecific ST changes were noted which did not meet the criteria for ischemia. No clinical angina is noted. The final blood pressure was 118/70 mmHg. Myocardial perfusion protocol. 14 mCi of technetium 99m sestamibi was injected at rest. 0.4 mg of regadenoson was infused per usual protocol. At peak infusion 42.6 mCi of technetium 99m sestamibi was injected stress images were obtained stress and rest images were reconstructed and compared in the short axis vertical long and horizontal long axis. Gated images were also obtained. Perfusion SPECT analysis: Review of the stress images demonstrate normal uptake of tracer noted in all areas of the myocardium. The resting images similar demonstrated normal uptake of tracer noted in all areas of the myocardium. No areas of reversibility are noted to suggest ischemia and no previous infarct is noted. Gated SPECT analysis: The gated ejection fraction is 79%. Conclusion: Normal pharmacologic myocardial perfusion stress test. Preserved ejection fraction.
== END | disposition home or self-care (01) ==
PROVIDERS: PCP Family Medicine; Referring Provider Internal Medicine Cardiovascular Disease; Visit Provider Internal Medicine Cardiovascular Disease
DX: I48.0 Paroxysmal atrial fibrillation (principal); I10 Essential (primary) hypertension; Z13.220 Encounter for screening for lipoid disorders
CPT/HCPCS: 78452; 93017; 93306; A9500; A4216; J2785